=== PATIENT | male | born 1940 | race Two or more races ===

== ENCOUNTER 2024-05-02 09:31 | Outpatient (CLI) | payer OTHER ==
[~2024-05-02 09:31] MED LIST: GILTUSS TR TAB1 EACH PO; HYZAAR 100-12.1 EACH; ZYRTEC10 MG PO
== END 2024-05-02 09:40 | disposition home or self-care (01) ==
LOC: RAD 09:31
PROVIDERS: ATTEND Family Medicine
DX: R05.9 Cough, unspecified (principal)

== ENCOUNTER 2025-04-22 13:22 | Emergency (ER) | payer OTHER ==
[~2025-04-22] VITALS: Ht 180.3 cm; Wt 78.5 kg
[2025-04-22] MEDS ORDERED: PEPCID AC20 MG (13:42)
[2025-04-22] MEDS ORDERED: NORVASC5 MG (13:42)
[2025-04-22] MEDS ORDERED: ONDANSETRON HCL 2 MG/ML VIAL IV ONE (15:00)
[2025-04-22] MEDS ORDERED: 0.9 % SODIUM CHLORIDE 500 ML IV ONE (15:00)
[2025-04-22] MEDS ORDERED: FAMOTIDINE/PF 20 MG/2 ML VIAL IV ONE (15:00)
[2025-04-22] MEDS ORDERED: ONDANSETRON HCL 2 MG/ML VIAL ONE (15:03)
[2025-04-22] MEDS ORDERED: FAMOTIDINE/PF 20 MG/2 ML VIAL ONE (15:03)
[2025-04-22 15:56] LABS: BASO % 0.5 % (0.1-1.2); EOS # 0.06 (0.04-0.54); EOS % 0.7 % (0.7-7.0); LYMPH # 1.38 (1.18-3.74); LYMPH % 15.9 % (19.3-53.1); MEAN PLATELET VOLUME 9.60 fl (9.4-12.4); MONO # 1.18 (0.24-0.82); NEUT # 6.00 (1.56-6.13); NEUT % 69.2 % (34.0-71.1); RED CELL DISTRIBUTION WIDTH 12.4 % (11.6-14.4)
[2025-04-22 16:06] LABS: MONO % 13.6 % (4.7-12.5)
[2025-04-22 16:14] LABS: URINE APPEARANCE Clear; URINE BILIRRUBIN Negative (NEGATIVE); URINE BLOOD Negative; URINE COLOR Yellow; URINE GLUCOSE Negative (NEGATIVE); URINE KETONE Negative (NEGATIVE); URINE LEUKOCYTE Negative; URINE NITRATE Negative; URINE PROTEIN Negative (NEGATIVE); URINE UROBILINOGEN 0.2 E.U./dl
[2025-04-22 16:15] LABS: ALT/SGPT 23.0 U/L (12-78); AST/SGOT 18.0 U/L (15-37); BILIRUBIN TOTAL 0.63 mg/dL (0.3-1.2); BUN CREA RATIO 16.0 (7.0-25.0); CREATININE SERUM 0.87 mg/dL (0.70-1.30); GFR 83.6; GLOBULINA 4.4 G/DL (2.4-3.5); GLUCOSE FASTING 93.0 mg/dL (65-100); OSMOLALITY SERUM 276.0 MOSM/KG (275-295)
[2025-04-22 16:26] LABS: URINE BACTERIA 0 uL (0.0-1933); URINE CAST 0.00 uL (0.0-1.40); URINE EPITHELIAL CELLS 0.1 uL (0.0-38.8); URINE RBC 1.1 uL (0.0-20.8); URINE WBC 0.4 uL (0.0-23.2)
[2025-04-22 16:26] LABS: COVID-19 AG NEGATIVE (NEGATIVE)
[2025-04-22] MEDS ORDERED: DEXAMETHASONE SODIUM PHOSPHATE 4 MG/ML VIAL ONE (18:42)
[2025-04-22] MEDS ORDERED: DEXAMETHASONE SODIUM PHOSPHATE 4 MG/ML VIAL IM ONE (18:45)
== END 2025-04-22 19:06 ==
LOC: ER 13:23
PROVIDERS: General Practice
DX: B34.9 Viral infection, unspecified (principal); R53.1 Weakness; R07.89 Other chest pain; Z20.822 Contact with and (suspected) exposure to COVID-19; I10 Essential (primary) hypertension; Z88.0 Allergy status to penicillin
CPT/HCPCS: 36415; 71046; 93005; 96365; 96366; 96372; 99283; J1100; J2405; J3490; J7030